=== PATIENT | male | born 1940 | race Caucasian/White ===

== ENCOUNTER → 2017-08-14 | Outpatient (CLI) | payer MEDICARE | END | disposition home or self-care (01) | LOC: RAH 15:19 | PROVIDERS: ATTEND Internal Medicine Cardiovascular Disease | DX: G31.9 Degenerative disease of nervous system, unspecified (principal) | CPT/HCPCS: 70551 ==

== ENCOUNTER 2024-12-25 13:49 | Emergency (ER) | payer MEDICARE ==
[~2024-12-25] VITALS: Ht 182.9 cm; Wt 82.8 kg
[~2024-12-25 13:49] MED LIST: APIX5TAB PO; BENZ-39 PO; IPRA3AMP24 NEB; SACU1TAB PO; TAMS-55 PO
--- NOTE | 2024-12-25 14:30 | NUR ---
bladder scan performed 550ml of urine noted in bladder, ERMD notified, order for farfan catheter was given
[2024-12-25 14:50] LABS: APPEARANCE,URINE CLEAR (CLEAR); BILIRUBIN,URINE NEGATIVE (NEGATIVE); COLOR,URINE LIGHT-YELLOW (YELLOW); GLUCOSE, URINE (UA) NEGATIVE (NEGATIVE); KETONES,URINE NEGATIVE (NEGATIVE); LEUKOCYTE ESTERASE ,URINE NEGATIVE Leu/uL (NEGATIVE); NITRATE,URINE NEGATIVE (NEGATIVE); OCCULT BLOOD,URINE MODERATE (NEGATIVE); PROTEIN,URINE NEGATIVE (NEGATIVE); UROBILINOGEN,URINE 0.2 mg/dL (0.2-1.0)
--- NOTE | 2024-12-25 14:57 | ERN ---
General Chief Complaint: Urinary Retention Stated Complaint: URINARY PROBLEM Time Seen by MD: 13:50 Source: patient History of Present Illness Initial Comments AN 84-YEAR-OLD MALE COMING IN TO BE EVALUATED FOR URINE RETENTION. PATIENT STATES THAT HE HAS BEEN HAVING TROUBLE. FOR A COUPLE OF DAYS. Allergies: Coded Allergies: No Known Allergies (Unverified Allergy, 06/05/13) Home Meds Active Scripts Ipratropium/Albuterol Sulfate (Iprat-Albut 0.5-3(2.5) mg/3 ml) 0.5 Mg-3 Mg (2.5 Mg Base)/3 Ml Ampul.neb, 1 VIAL NEB BID for 30 Days, #180 ML 0 Refills Prov:HARLEEN KURTZ MD 12/18/24 Benzonatate (Tessalon Perles) 100 Mg Cap, 1 CAP PO TID for cough for 10 Days, #30 CAP 0 Refills Prov:HARLEEN KURTZ MD 12/18/24 Sacubitril/Valsartan (Entresto 24 mg-26 mg Tablet) 24 Mg-26 Mg Tablet, 1 EACH PO BID, #60 TAB Prov:HARLEEN KURTZ MD 12/18/24 Reported Medications Apixaban (Eliquis) 5 Mg Tablet, 5 MG PO BI, TAB 12/16/24 Tamsulosin HCl (Flomax) 0.4 Mg Cap.er.24h, 0.4 MG PO BID, CAPSULE. 12/16/24 Discontinued Reported Medications Amlodipine Besylate (Amlodipine Besylate) 5 Mg Tablet, 5 MG PO HS, TAB 12/16/24 Past Medical History Past Medical History: Cancer, CHF, Hypertension, Stroke Medical History Other: HX OF NON HODGKINS, NEUROPATHY Past Surgical History: Pacer/AICD Surgical History Other: HEART STENTS ROS Dictation CONSTITUTIONAL: NO CHILLS, NO FEVER, NO WEAKNESS, NO DIAPHORESIS, NO MALAISE. HEAD/FACE: NO SIGNS OF TRAUMA. EENT: NO EYE PAIN, NO BLURRED VISION, NO TEARING, NO DOUBLE VISION, NO EAR PAIN, NO EAR DISCHARGE, NO NOSE PAIN, NO NASAL CONGESTION, NO THROAT PAIN, NO THROAT SWELLING, NO MOUTH PAIN. RESPIRATORY: NO COUGH, NO ORTHOPNEA, NO SOB, NO STRIDOR, NO WHEEZING. CARDIOVASCULAR: NO CHEST PAIN, NO EDEMA, NO PALPITATIONS, NO SYNCOPE. GASTROINTESTINAL/ABDOMINAL: NO ABDOMINAL PAIN, NO CONSTIPATION, NO DIARRHEA, NO NAUSEA, NO VOMITING. GENITOURINARY: NO ABNORMAL DISCHARGE, NO DYSURIA, NO FREQUENT URINATION, NO HEMATURIA. NO COMPLAINTS OF PAIN IN THE GENITALS. MUSCULOSKELETAL: NO BACK PAIN, NO GOUT, NO JOINT PAIN, NO JOINT SWELLING, NO MUSCLE PAIN, NO MUSCLE STIFFNESS, NO NECK PAIN. INTEGUMENTARY: NO CHANGE IN COLOR, NO CHANGE IN HAIR/NAILS, NO DRYNESS, NO LESION, NO LUMPS, NO RASH. NEUROLOGICAL/PSYCH: NO ANXIETY, NOT DEPRESSED, NO EMOTIONAL PROBLEM, NO HEADACHE, NO NUMBNESS, NO PRE-EXISTING DEFICIT, NO HISTORY OF SEIZURES, NO TREMORS, NO WEAKNESS. HEMATOLOGIC/LYMPHATIC: NOT ANEMIC, NO HISTORY OF BLOOD CLOTS, NO APPARENT BLEEDING, NO BRUISING, GLANDS NOT SWOLLEN. ALL SYSTEMS NEGATIVE, EXCEPT NOTED. Physical Exam Physical Exam Dictation VITAL SIGNS: REVIEWED. GENERAL APPEARANCE: ALERT, ORIENTED X3, NO ACUTE DISTRESS, OBESE. HEAD AND FACE: NON-TRAUMATIC. EYES: PERRL, PINK CONJUNCTIVAS, EYELID NO TRAUMA, ANTERIOR CHAMBER CLEAR. EARS: PINNAS INTACT AND NO SIGNS OF TRAUMA OR ERYTHEMA. EAR CANALS CLEAR AND NO DISCHARGE. TMS NO ERYTHEMA. NOSE: NO DISCHARGE, NO BLEEDING. OROPHARYNX: MOUTH NORMAL, TEETH NO CARIES, TONGUE PINK. PHARYNX CLEAR, NO ERYTHEMA. TONSILS NO EXUDATES, NO ABSCESSES NOTED. MUCOUS MEMBRANE MOIST. NECK: SUPPLE, NON-TENDER, NO THYROMEGALY, NO MASSES, NO JVD, NO BRUITS. BREAST: DEFERRED. CHEST: NO TENDERNESS, NO CREPITUS, NO PARADOXICAL MOVEMENT, NO RETRACTIONS. LUNGS: CLEAR, WELL-VENTILATED, SYMMETRIC, NO RALES, NO WHEEZING, NO RHONCHI, NO STRIDOR, GOOD BREATH SOUNDS BILATERALLY. HEART: REGULAR RATE, REGULAR RHYTHM, NO MURMUR, NO GALLOPS. VASCULAR: NO PERIPHERAL EDEMA. ABDOMEN: SOFT, POSITIVE BOWEL SOUNDS, NONDISTENDED, NO GUARDING, NONTENDER, NO REBOUND, NO MASSES NO HEPATOMEGALY, NO SPLENOMEGALY, NO MON'S SIGN, NO HERNIAS. RECTAL: DEFERRED. GENITAL: DEFERRED. NEUROLOGICAL: NORMAL SPEECH, GROSS MOTOR FUNCTION INTACT, GROSS SENSORY FUNCTION INTACT. MUSCULOSKELETAL: NECK NONTENDER, FULL RANGE OF MOTION, BACK NONTENDER, FULL RANGE OF MOTION. EXTREMITIES: NONTENDER, FULL RANGE OF MOTION. SKIN: COLOR PINK, DRY, NO TURGOR, NO RASH, NO LACERATIONS, NO ABRASIONS, NO CONTUSIONS. LYMPHATICS: DEFERRED. Results Laboratory and Microbiology Lab and Micro Result Laboratory Tests Test 12/25/24 14:35 Urine Color LIGHT-YELLOW (YELLOW) Urine Appearance CLEAR (CLEAR) Urine pH 5.0 (5.0-8.0) Urine Specific Arnold 1.018 (1.001-1.031) Urine Protein NEGATIVE mg/dL (NEGATIVE) Urine Glucose (UA) NEGATIVE mg/dL (NEGATIVE) Urine Ketones NEGATIVE mg/dL (NEGATIVE) Urine Occult Blood MODERATE (NEGATIVE) H Urine Nitrate NEGATIVE (NEGATIVE) Urine Bilirubin NEGATIVE mg/dL (NEGATIVE) Urine Urobilinogen 0.2 mg/dL (0.2-1.0) Urine Leukocyte Esterase NEGATIVE Blue/uL Urine RBC 11-25 /HPF (0-1) H Urine WBC 2-5 /HPF (0-1) H Urine Bacteria None /HPF (None Seen) Labs Reviewed?: Yes MDM MDM: DIFFERENTIAL DIAGNOSIS: URINE RETENTION, UTI, RATIONALE: TESTS CONSIDERED AND ORDERED SECONDARY TO SHARED DECISION MAKING INCLUDE: PREVIOUS OUTSIDE RECORDS REVIEWED: OLD ER VISITS. RISK OF COMPLICATION AND/OR MORBIDITY OR MORTALITY OF PATIENT MANAGEMENT: NONE MEDICATIONS-PER MEDICATION RECONCILIATION PATIENT IS A AN 84-YEAR-OLD MALE COMING IN TO BE EVALUATED FOR URINE RETENTION. PATIENT STATES THAT HE STARTED NOTICING LESS OF A STREAM WHEN URINATING. HE STATES THAT THIS IS HAS BEEN BEFORE. CHILD CATHETER WAS PLACED 500 ML OF URINE WERE REMOVED. PATIENT WILL BE DISCHARGED IN STABLE CONDITION HE DOES STATE THAT HE FEELS MUCH BETTER. ED Course Orders Procedure Category Date Status Time Blood Cult SHAKEEL 12/25/24 Logged 14:10 Urinalysis LAB 12/25/24 Complete W/Microscopic 14:43 Nurse Driven Child ANNA 12/25/24 Transmitted Removal Pro 14:30 Vital Signs Date Time Temp Pulse Resp B/P (MAP) Pulse Ox O2 Delivery O2 Flow Rate FiO2 12/25/24 14:08 97.9 92 18 198/107 98 Room Air 0 DX & DISP Disposition: Discharge Departure Impression: Primary Impression: Urinary retention Condition: Stable Additional Instructions: FOLLOW-UP WITH PRIMARY CARE PROVIDER IN 1 TO 2 DAYS. TAKE MEDICATIONS DIRECTED HERE IN THE EMERGENCY ROOM. OKAY TO CONTINUE HOME MEDICATIONS UNLESS OTHERWISE DISCUSSED DURING YOUR VISIT IN THE EMERGENCY ROOM TODAY. RETURN TO YOUR NEAREST EMERGENCY ROOM IF SYMPTOMS WORSEN OR IF THERE IS NO IMPROVEMENT. CALL 911 IF YOU NEED IMMEDIATE ASSISTANCE. TAKE TYLENOL [id number] NEEDED AND IF NO CONTRAINDICATIONS ARE PRESENT. INCREASE ORAL HYDRATION. A WOUND CULTURE OR URINE CULTURE WAS ORDERED HERE IN THE EMERGENCY ROOM DEPARTMENT PLEASE FOLLOW-UP WITH PRIMARY CARE PROVIDER AND ADVISE THEM TO GET REPEAT PORTS FROM OUR FACILITY. IF YOU HAD ANY CHING WRAP/SPLINTS THAT WERE APPLIED HERE, PLEASE DO NOT REMOVE THEM UNTIL YOU SEE YOUR PRIMARY CARE OR SPECIALTY. REFERRALS: Referrals: ISAÍAS MARQUES (PCP) AGUSTO MATTA MD Time of Disposition: 15:20 CHERRI JACOBS MD December 25, 2024 14:57
[2024-12-25 15:23] VITALS: BP 143/62; PULSE 76; RESP 18; TEMP 97.6; O2SAT 94
--- NOTE | 2024-12-25 15:24 | NUR ---
patient farfan bag was changed to a leg bag for disposition, patient toelrated well, and verbalized understanding on how to empty bladder
== END 2024-12-25 15:38 | disposition home or self-care (01) ==
LOC: EDH 13:49
DX: R33.9 Retention of urine, unspecified (principal); I11.0 Hypertensive heart disease with heart failure; I50.9 Heart failure, unspecified; Z79.899 Other long term (current) drug therapy; Z85.71 Personal history of Hodgkin lymphoma; Z86.73 Personal history of transient ischemic attack (TIA), and cerebral infarction without residual deficits; Z95.5 Presence of coronary angioplasty implant and graft; Z95.810 Presence of automatic (implantable) cardiac defibrillator
CPT/HCPCS: 51702; 81001; 99284

== ENCOUNTER 2024-12-27 15:09 | Emergency (ER) | payer MEDICARE ==
[~2024-12-27] VITALS: Ht 182.9 cm; Wt 81.2 kg
--- NOTE | 2024-12-27 16:04 | NUR ---
US bedside at this time.
--- NOTE | 2024-12-27 16:33 | HMCIMG ---
US ABD LIMITED/ABD WALL REASON: BLADDER EVALUATION FOR HEMATURIA. COMPARISON: None TECHNIQUE: Limited bladder ultrasound study was performed. FINDINGS: Bladder is poorly distended with Torres catheter. Prostate measures to 128 cc which is enlarged. IMPRESSION: Bladder is poorly distended with Torres catheter.
[2024-12-27 17:11] VITALS: BP 133/86; PULSE 78; RESP 18; TEMP 97.9; O2SAT 98
--- NOTE | 2024-12-27 17:13 | ERN ---
General Chief Complaint: Urinary Catheter Problems Stated Complaint: CATHETER ISSUE Time Seen by MD: 15:10 Source: patient History of Present Illness Initial Comments PATIENT IS A 84-YEAR-OLD MALE COMING IN TO BE EVALUATED FOR CATHETER PROBLEM. PATIENT STATES THAT THIS HAS BEEN ONGOING FOR ONE DAY. PATIENT HAD A CHILD PLACED TWO DAYS AGO AND HE STATES THAT EARLIER TODAY HE STARTED HAVING SOME DISCOMFORT AND FELT IF THE CHILD WAS LEAKING. SO HE IS HERE FOR FURTHER EVALUATION. Allergies: Coded Allergies: No Known Allergies (Unverified Allergy, 06/05/13) Home Meds Active Scripts Ipratropium/Albuterol Sulfate (Iprat-Albut 0.5-3(2.5) mg/3 ml) 0.5 Mg-3 Mg (2.5 Mg Base)/3 Ml Ampul.neb, 1 VIAL NEB BID for 30 Days, #180 ML 0 Refills Prov:HARLEEN KURTZ MD 12/18/24 Benzonatate (Tessalon Perles) 100 Mg Cap, 1 CAP PO TID for cough for 10 Days, #30 CAP 0 Refills Prov:HARLEEN KURTZ MD 12/18/24 Sacubitril/Valsartan (Entresto 24 mg-26 mg Tablet) 24 Mg-26 Mg Tablet, 1 EACH PO BID, #60 TAB Prov:HARLEEN KURTZ MD 12/18/24 Reported Medications Apixaban (Eliquis) 5 Mg Tablet, 5 MG PO BI, TAB 12/16/24 Tamsulosin HCl (Flomax) 0.4 Mg Cap.er.24h, 0.4 MG PO BID, CAPSULE. 12/16/24 Past Medical History Past Medical History: Cancer, CHF, Hypertension, Stroke Medical History Other: HX OF NON HODGKINS, NEUROPATHY Past Surgical History: Pacer/AICD Surgical History Other: HEART STENTS ROS Dictation CONSTITUTIONAL: NO CHILLS, NO FEVER, NO WEAKNESS, NO DIAPHORESIS, NO MALAISE. HEAD/FACE: NO SIGNS OF TRAUMA. EENT: NO EYE PAIN, NO BLURRED VISION, NO TEARING, NO DOUBLE VISION, NO EAR PAIN, NO EAR DISCHARGE, NO NOSE PAIN, NO NASAL CONGESTION, NO THROAT PAIN, NO THROAT SWELLING, NO MOUTH PAIN. RESPIRATORY: NO COUGH, NO ORTHOPNEA, NO SOB, NO STRIDOR, NO WHEEZING. CARDIOVASCULAR: NO CHEST PAIN, NO EDEMA, NO PALPITATIONS, NO SYNCOPE. GASTROINTESTINAL/ABDOMINAL: NO ABDOMINAL PAIN, NO CONSTIPATION, NO DIARRHEA, NO NAUSEA, NO VOMITING. GENITOURINARY: NO ABNORMAL DISCHARGE, NO DYSURIA, NO FREQUENT URINATION, NO HEMATURIA. COMPLAINTS OF PAIN IN THE GENITALS. MUSCULOSKELETAL: NO BACK PAIN, NO GOUT, NO JOINT PAIN, NO JOINT SWELLING, NO MUSCLE PAIN, NO MUSCLE STIFFNESS, NO NECK PAIN. INTEGUMENTARY: NO CHANGE IN COLOR, NO CHANGE IN HAIR/NAILS, NO DRYNESS, NO LESION, NO LUMPS, NO RASH. NEUROLOGICAL/PSYCH: NO ANXIETY, NOT DEPRESSED, NO EMOTIONAL PROBLEM, NO HEADACHE, NO NUMBNESS, NO PRE-EXISTING DEFICIT, NO HISTORY OF SEIZURES, NO TREMORS, NO WEAKNESS. HEMATOLOGIC/LYMPHATIC: NOT ANEMIC, NO HISTORY OF BLOOD CLOTS, NO APPARENT BLEEDING, NO BRUISING, GLANDS NOT SWOLLEN. ALL SYSTEMS NEGATIVE, EXCEPT NOTED. Physical Exam Physical Exam Dictation VITAL SIGNS: REVIEWED. GENERAL APPEARANCE: ALERT, ORIENTED X3, NO ACUTE DISTRESS, OBESE. HEAD AND FACE: NON-TRAUMATIC. EYES: PERRL, PINK CONJUNCTIVAS, EYELID NO TRAUMA, ANTERIOR CHAMBER CLEAR. EARS: PINNAS INTACT AND NO SIGNS OF TRAUMA OR ERYTHEMA. EAR CANALS CLEAR AND NO DISCHARGE. TMS NO ERYTHEMA. NOSE: NO DISCHARGE, NO BLEEDING. OROPHARYNX: MOUTH NORMAL, TEETH NO CARIES, TONGUE PINK. PHARYNX CLEAR, NO ERYTHEMA. TONSILS NO EXUDATES, NO ABSCESSES NOTED. MUCOUS MEMBRANE MOIST. NECK: SUPPLE, NON-TENDER, NO THYROMEGALY, NO MASSES, NO JVD, NO BRUITS. BREAST: DEFERRED. CHEST: NO TENDERNESS, NO CREPITUS, NO PARADOXICAL MOVEMENT, NO RETRACTIONS. LUNGS: CLEAR, WELL-VENTILATED, SYMMETRIC, NO RALES, NO WHEEZING, NO RHONCHI, NO STRIDOR, GOOD BREATH SOUNDS BILATERALLY. HEART: REGULAR RATE, REGULAR RHYTHM, NO MURMUR, NO GALLOPS. VASCULAR: NO PERIPHERAL EDEMA. ABDOMEN: SOFT, POSITIVE BOWEL SOUNDS, NONDISTENDED, NO GUARDING, NONTENDER, NO REBOUND, NO MASSES NO HEPATOMEGALY, NO SPLENOMEGALY, NO MON'S SIGN, NO HERNIAS. RECTAL: DEFERRED. GENITAL: URINARY CATHETER LEAKING NEUROLOGICAL: NORMAL SPEECH, GROSS MOTOR FUNCTION INTACT, GROSS SENSORY FUNCTION INTACT. MUSCULOSKELETAL: NECK NONTENDER, FULL RANGE OF MOTION, BACK NONTENDER, FULL RANGE OF MOTION. EXTREMITIES: NONTENDER, FULL RANGE OF MOTION. SKIN: COLOR PINK, DRY, NO TURGOR, NO RASH, NO LACERATIONS, NO ABRASIONS, NO CONTUSIONS. LYMPHATICS: DEFERRED. Results Laboratory and Microbiology Labs Reviewed?: Yes EKG/XRAY/US/CT/MRI Ultrasound Comment [address] [place] [address] IMAGING REPORT Signed PATIENT: JAN MACHADO JR MR#: [id number] : 1940 SEX: M AGE: 84 LOCATION: [facility] ORDER 56 STATUS: [facility] ER REPORT#: [id number] SERVICE 55 REASON: BLADDER EVALUATION FOR HEMATURIA ORDERING PHYSICIAN: CHERRI JACOBS MD PROCEDURE: ABD WALL - US ABD LIMITED/ABD WALL US ABD LIMITED/ABD WALL REASON: BLADDER EVALUATION FOR HEMATURIA. COMPARISON: None TECHNIQUE: Limited bladder ultrasound study was performed. FINDINGS: Bladder is poorly distended with Child catheter. Prostate measures to 128 cc which is enlarged. IMPRESSION: Bladder is poorly distended with Child catheter. DICTATED BY: JAN ALEMAN MD DATE: 12/27/241628 ELECTRONICALLY SIGNED BY: JAN ALEMAN MD DATE: 12/27/24 163 MDM MDM: DIFFERENTIAL DIAGNOSIS: CHILD CATHETER PROBLEM, RATIONALE: TESTS CONSIDERED AND ORDERED SECONDARY TO SHARED DECISION MAKING INCLUDE: PREVIOUS OUTSIDE RECORDS REVIEWED: OLD ER VISITS. RISK OF COMPLICATION AND/OR MORBIDITY OR MORTALITY OF PATIENT MANAGEMENT: NONE MEDICATIONS-PER MEDICATION RECONCILIATION IN HIS IS A 84-YEAR-OLD GENTLEMAN COMING IN WITH CATHETER PROBLEM. CATHETER WAS DEFLATED REINSERTED MILD HEMATURIA IS CLEARED UP AFTER FLUSHING. PATIENT WILL BE DISCHARGED IN STABLE CONDITION WITH A DIAGNOSIS OF CHILD CATHETER PROBLEM. DID ADVISED HIM APPROPRIATE FOLLOW UP WITH UROLOGIST AND PCP. ED Course Orders Procedure Category Date Status Time Us Abd Limited/Abd US 12/27/24 Resulted Wall 15:56 Vital Signs Date Time Temp Pulse Resp B/P (MAP) Pulse Ox O2 Delivery O2 Flow Rate FiO2 12/27/24 15:18 97.5 83 20 121/72 98 Room Air DX & DISP Disposition: Discharge Departure Impression: Primary Impression: Child catheter problem Condition: Stable Additional Instructions: FOLLOW-UP WITH PRIMARY CARE PROVIDER IN 1 TO 2 DAYS. TAKE MEDICATIONS DIREC BRIANNA HERE IN THE EMERGENCY ROOM. OKAY TO CONTINUE HOME MEDICATIONS UNLESS OTHERWISE DISCUSSED DURING YOUR VISIT IN THE EMERGENCY ROOM TODAY. RETURN TO YOUR NEAREST EMERGENCY ROOM IF SYMPTOMS WORSEN OR IF THERE IS NO IMPROVEMENT. CALL 911 IF YOU NEED IMMEDIATE ASSISTANCE. TAKE TYLENOL [id number] NEEDED AND IF NO CONTRAINDICATIONS ARE PRESENT. INCREASE ORAL HYDRATION. A WOUND CULTURE OR URINE CULTURE WAS ORDERED HERE IN THE EMERGENCY ROOM DEPARTMENT PLEASE FOLLOW-UP WITH PRIMARY CARE PROVIDER AND ADVISE THEM TO GET REPEAT PORTS FROM OUR FACILITY. IF YOU HAD ANY CHING WRAP/SPLINTS THAT WERE APPLIED HERE, PLEASE DO NOT REMOVE THEM UNTIL YOU SEE YOUR PRIMARY CARE OR SPECIALTY. REFERRALS: Referrals: ISAÍAS MARQUES (PCP) Time of Disposition: 17:13 CHERRI JACOBS MD December 27, 2024 17:13
== END 2024-12-27 17:22 | disposition home or self-care (01) ==
LOC: EDH 15:09
DX: T83.098A Other mechanical complication of other urinary catheter, initial encounter (principal); I11.0 Hypertensive heart disease with heart failure; I50.9 Heart failure, unspecified; Z79.899 Other long term (current) drug therapy; Z85.71 Personal history of Hodgkin lymphoma; Z86.73 Personal history of transient ischemic attack (TIA), and cerebral infarction without residual deficits; Z95.5 Presence of coronary angioplasty implant and graft; Z95.810 Presence of automatic (implantable) cardiac defibrillator; Y84.6 Urinary catheterization as the cause of abnormal reaction of the patient, or of later complication, without mention of misadventure at the time of the procedure
CPT/HCPCS: 76705; 99284

== ENCOUNTER 2024-12-31 15:57 | Emergency (ER) | payer MEDICARE ==
[~2024-12-31] VITALS: Ht 182.9 cm; Wt 81.6 kg
--- NOTE | 2024-12-31 16:46 | ERN ---
General Chief Complaint: Blood in Urine: Stated Complaint: CATHETER REMOVAL;URINATING BLOOD Time Seen by MD: 15:58 History of Present Illness Initial Comments 84-year-old male requesting Child catheter to be removed. He had a placed about 10 days ago here. He reports that it has been leaking from the tip of the penis. He has no fevers vomiting diarrhea or any other symptoms. He has been taking tamsulosin and an antibiotic. Allergies: Coded Allergies: No Known Allergies (Unverified Allergy, 06/05/13) Home Meds Active Scripts Ipratropium/Albuterol Sulfate (Iprat-Albut 0.5-3(2.5) mg/3 ml) 0.5 Mg-3 Mg (2.5 Mg Base)/3 Ml Ampul.neb, 1 VIAL NEB BID for 30 Days, #180 ML 0 Refills Prov:HARLEEN KURTZ MD 12/18/24 Benzonatate (Tessalon Perles) 100 Mg Cap, 1 CAP PO TID for cough for 10 Days, #30 CAP 0 Refills Prov:HARLEEN KURTZ MD 12/18/24 Sacubitril/Valsartan (Entresto 24 mg-26 mg Tablet) 24 Mg-26 Mg Tablet, 1 EACH PO BID, #60 TAB Prov:HARLEEN KURTZ MD 12/18/24 Reported Medications Apixaban (Eliquis) 5 Mg Tablet, 5 MG PO BI, TAB 12/16/24 Tamsulosin HCl (Flomax) 0.4 Mg Cap.er.24h, 0.4 MG PO BID, CAPSULE. 12/16/24 Past Medical History Past Medical History: A-Fib, CHF, Hypertension Medical History Other: HX OF STROKE Past Surgical History: Appendectomy Surgical History Other: CAROTID ARTERY SX, HIP REPLACEMENT, RT ELBOW ROS Dictation CONSTITUTIONAL: No chills, no fever, no weakness, no diaphoresis, no malaise. HEAD/FACE: No signs of trauma. EENT: No eye pain, no blurred vision, no tearing, no double vision, no ear pain, no ear discharge, no nose pain, no nasal congestion, no throat pain, no throat swelling, no mouth pain. RESPIRATORY: No cough, no orthopnea, no SOB, no stridor, no wheezing. CARDIOVASCULAR: No chest pain, no edema, no palpitations, no syncope. GASTROINTESTINAL/ABDOMINAL: No abdominal pain, no constipation, no diarrhea, no nausea, no vomiting. GENITOURINARY: No abnormal discharge, no dysuria, no frequent urination, no hematuria. No complaints of pain in the genitals. MUSCULOSKELETAL: No back pain, no gout, no joint pain, no joint swelling, no muscle pain, no muscle stiffness, no neck pain. INTEGUMENTARY: No change in color, no change in hair/nails, no dryness, no lesion, no lumps, no rash. NEUROLOGICAL/PSYCH: No anxiety, not depressed, no emotional problem, no headache, no numbness, no pre-existing deficit, no history of seizures, no tremors, no weakness. HEMATOLOGIC/LYMPHATIC: Not anemic, no history of blood clots, no apparent bleeding, no bruising, glands not swollen. All Systems Negative, Except as Noted. Physical Exam Physical Exam Dictation VITAL SIGNS: Reviewed. GENERAL APPEARANCE: Alert, oriented x3, no acute distress. HEAD AND FACE: Non-traumatic. EYES: PERRL, pink conjunctivas, eyelid no trauma, anterior chamber clear. EARS: Pinnas intact and no signs of trauma or erythema. Ear canals clear and no discharge. TMs no erythema. NOSE: No discharge, no bleeding. OROPHARYNX: Mouth normal, teeth no caries, tongue pink. Pharynx clear, no erythema. Tonsils no exudates, no abscesses noted. Mucous membrane moist. NECK: Supple, non-tender, no thyromegaly, no masses, no JVD, no bruits. BREAST: Deferred. CHEST: No tenderness, no crepitus, no paradoxical movement, no retractions. LUNGS: Clear, well-ventilated, symmetric, no rales, no wheezing, no rhonchi, no stridor, good breath sounds bilaterally. HEART: Regular rate, regular rhythm, no murmur, no gallops. VASCULAR: No peripheral edema. ABDOMEN: Soft, positive bowel sounds, nondistended, no guarding, nontender, no rebound, no masses no hepatomegaly, no splenomegaly, no Gurrola's sign, no hernias. RECTAL: Deferred. GENITAL: Deferred. NEUROLOGICAL: Normal speech, gross motor function intact, gross sensory function intact. MUSCULOSKELETAL: Neck nontender, full range of motion, back nontender, full range of motion. EXTREMITIES: Nontender, full range of motion. SKIN: Color pink, dry, no turgor, no rash, no lacerations, no abrasions, no contusions. LYMPHATICS: Deferred. MDM CC: wants child catheter removed. Has been present for about 10 days Comorbidities: advanced age, "prostate issues" likely BPH Historian: patient Limitations: none VSS Patient has child, leaking. No other symptoms, non toxic. Wants child removed. On tamsulosin & abx. I initially removed the child per patient request. Will make sure patient able to urinate prior to leaving. I transferred care at shift change pending urination and re-evaluation. If patient uranates OK with normal post void, patient can be DCd to PCP f/u. CHILD WAS REMOVED, PATIENT URINATING. HE WILL BE SENT HOME WITH RECOMMENDED TO FOLLOW UP WITH HIS PCP IN NEXT 24 HOURS. ED Course Orders Procedure Category Date Status Time Dc Child Catheter CPOE 12/31/24 Transmitted 17:07 Vital Signs Date Time Temp Pulse Resp B/P (MAP) Pulse Ox O2 Delivery O2 Flow Rate FiO2 12/31/24 21:23 97.3 9 17 165/87 99 Room Air* 0 21 12/31/24 20:50 75 16 159/80 99 Room Air* 0 21 12/31/24 19:20 98.1 76 17 148/51 99 Room Air* 0 21 12/31/24 18:01 98.1 77 18 150/83 99 Room Air* 0 21 12/31/24 16:30 97.9 78 18 132/72 96 Room Air 12/31/24 16:30 97.7 75 12 155/95 100 Room Air* 0 21 DX & DISP Disposition: Discharge Departure Impression: Primary Impression: Urinary retention Additional Impressions: Child catheter problem, BPH (benign prostatic hyperplasia) Condition: Stable Additional Instructions: RETURN TO ER FOR ANY ACUTE OR WORSENING SYMPTOMS. FOLLOW-UP IN 1-2 DAYS WITH PRIMARY PROVIDER FOR RECHECK OF TODAY'S SYMPTOMS. Referrals: ISAÍAS MARQUES (PCP) SHILPI HERNANDEZ DO December 31, 2024 16:46 SIERRA SPAIN MD December 31, 2024 21:16
--- NOTE | 2024-12-31 17:24 | NUR ---
i deflated balloon from farfan catheter, dc'd patients farfan, patient tolerated well patient resting in bed, call light in reach
--- NOTE | 2024-12-31 19:10 | NUR ---
REPORT GIVEN TO KAYLA JOHNSON
--- NOTE | 2024-12-31 19:20 | NUR ---
100MLS NOTED IN BEDSIDE URINAL. URINE IS STRAW COLOR WITH SMALL VISABLE CLOTS.
[2024-12-31 21:23] VITALS: BP 165/87; PULSE 9; RESP 17; TEMP 97.4; O2SAT 99
--- NOTE | 2024-12-31 21:33 | NUR ---
200 MLS OF OUTPUT NOTED IN BEDSIDE URINAL
== END 2024-12-31 21:36 | disposition home or self-care (01) ==
LOC: EDH 15:57
DX: T83.9XXA Unspecified complication of genitourinary prosthetic device, implant and graft, initial encounter (principal); R33.9 Retention of urine, unspecified; N40.0 Benign prostatic hyperplasia without lower urinary tract symptoms; I48.91 Unspecified atrial fibrillation; I11.0 Hypertensive heart disease with heart failure; I50.9 Heart failure, unspecified; Z79.899 Other long term (current) drug therapy; Z86.73 Personal history of transient ischemic attack (TIA), and cerebral infarction without residual deficits; Z90.49 Acquired absence of other specified parts of digestive tract; Y82.8 Other medical devices associated with adverse incidents; Y92.89 Other specified places as the place of occurrence of the external cause
CPT/HCPCS: 99284; 99285